=== PATIENT | female | born 1950 | race Caucasian/White ===

== ENCOUNTER 2016-05-09 09:45 | Day surgery (SDC) | payer MEDICARE ==
[2016-05-08 09:27] VITALS: BMI 39.4
--- NOTE | 2016-05-08 13:06 | HP ---
DATE OF ADMISSION: CHIEF COMPLAINT: Right knee pain. HISTORY OF PRESENT ILLNESS: The patient is a 66-year-old female who presents with progressive right knee pain for the past 6 months. She notes increasing symptoms recently. She is having giving way along with locking and catching. She notes it interferes with her normal function and activities. She tried medications along with an injection with only partial temporary relief. PAST MEDICAL HISTORY: Significant for reflux disease, hypertension, heart disease, previous TIA. PAST SURGICAL HISTORY: Significant for skin cancer excision, cholecystectomy, carotid endarterectomy and hysterectomy. CURRENT MEDICATIONS: 1. Metoprolol. 2. Plavix. 3. Simvastatin. 4. ( ). 5. Zyrtec. 6. Omeprazole. 7. Hydrochlorothiazide. She has allergies to FLOXIN, AUGMENTIN and CLINDAMYCIN. FAMILY HISTORY: Negative. SOCIAL HISTORY: Negative for current tobacco or alcohol use. Sixteen-point review of systems otherwise reviewed and is noncontributory. On examination, the patient is approximately 5 feet 4 inches, 247 pounds of endomorphic habitus. HEENT exam is nonfocal. Neck is supple. She has painless passive motion of her right hip. Straight leg raise is negative. Active motion of the right knee -6 to 105 degrees of flexion. She has a moderate effusion. She is tender about the medial joint line. Collaterals are stable, Stacey's negative, Rohith's elicits medial pain. Her distal neurovascular exam appears be intact in the right lower extremity. X-rays to include weight-bearing notch, lateral, and merchant views of the right knee obtained in the office show moderate tricompartmental osteoarthrosis. IMPRESSION: 1. Right knee moderate tricompartmental osteoarthrosis with probable medial meniscal tear. 2. Increased body mass index. RECOMMENDATIONS: I talked to the patient at length regarding her treatment options. At this point, she is having pain and mechanical symptoms that limit her. She opts to proceed with surgery. We will plan to proceed with arthroscopic evaluation with probable partial medial meniscectomy and possible medial femoral chondrectomy. Risks and benefits are discussed at length in layman terms. We will likely perform that as an outpatient procedure.
[~2016-05-09 09:45] MED LIST: DEXAMETHASONE SOD PHOSPHATE 10 MG/ML 1 ML VIAL IV ONE; LACTATED RINGERS 1,000 ML IV SCH; MIDAZOLAM 2 MG/2 ML VIAL IV PRN; ONDANSETRON 4 MG/2 ML VIAL IVP ONE; SCOPOLAMINE 1.5MG/72HR PATCH TRANSDERM ONE; ceFAZolin 2 GM in SODIUM CHLORIDE 0.9% 100 ML IVPB ONE
[2016-05-09] MEDS ORDERED: NEOSTIGMINE 1 MG/ML 10 ML VIAL ONE (12:10)
[2016-05-09] MEDS ORDERED: MIDAZOLAM 2 MG/2 ML VIAL ONE (12:10)
[2016-05-09] MEDS ORDERED: GLYCOPYRROLATE 0.2 MG/ML 2 ML VIAL ONE (12:10)
[2016-05-09] MEDS ORDERED: ROCURONIUM BROMIDE 10 MG/ML 10 ML VIAL IV ONE (12:10)
[2016-05-09] MEDS ORDERED: fentaNYL (PF) 50 MCG/ML 2 ML AMP ONE (12:10)
[2016-05-09] MEDS ORDERED: LIDOCAINE 1% INJ 10MG/ML (20 ML MDV) ONE (12:10)
[2016-05-09] MEDS ORDERED: SUCCINYLCHOLINE CHLORIDE 100 MG/5 ML SYR IV ONE (12:10)
[2016-05-09] MEDS ORDERED: PROPOFOL 10 MG/ML 20 ML VIAL IV ONE (12:10)
--- NOTE | 2016-05-09 12:57 | P.OP ---
Date of Procedure: 05/09/16 Preoperative Diagnosis: Right knee internal derangement Postoperative Diagnosis: Right knee posterior medial meniscal tear/grade 3 chondral injury posterior medial femoral condyle/anterior and posterior lateral meniscal tears Procedure(s) Performed: Right knee arthroscopic partial medial meniscectomy/medial femoral chondrectomy/ partial lateral meniscectomy Anesthesia: BRIDGER Surgeon: Oli Miranda Estimated Blood Loss (ml): 10 Pathology: none sent Condition: stable Disposition: PACU Indications for Procedure: The patient's a 66-year-old female presents with progressive right knee pain and mechanical symptoms despite conservative treatment. A discussion of the risks and benefits of operative intervention versus continued conservative measures was made with patient. She opted to proceed with surgery. Operative risks to include infection, neurovascular injury, development of blood clots, possible incomplete resolution of symptoms, possible worsening symptoms and need for subsequent procedures was discussed. Informed consent was obtained. Operative Findings: As below Description of Procedure: The patient was brought to the operating room, and after induction of general anesthesia examined the right knee. Collaterals were stable, Stacey was negative, and posterior drawer was negative. Right lower extremity was prepped and draped in normal fashion. A superior lateral portal was made through a 3 mm skin incision superior and lateral to the patella. This was used for outflow. A lateral portal was made through a 5 mm vertical skin incision lateral to the patellar tendon above the joint. Diagnostic arthroscopy was performed. A medial portal was made through a similar incision medial to the patellar tendon above the joint line. On inspection the medial compartment, she is noted have a longitudinal tear involving the posterior horn medial meniscus in the white-white junction. Debrided back to stable base with a straight baskets. A corresponding grade 3 chondral injury involving the central posterior portion of the medial femoral condyle was noted. It was a loose chondral fragment debrided back to stable base the motorized shaver. The remaining medial meniscus was stable and intact. On inspection of the notch, the anterior cruciate ligament appeared to be intact. There appeared to be an anterior horn lateral meniscal tear that was unstable. His debrided back to stable base with straight baskets and a motorized shaver. A posterior lateral meniscal tear was noted as well. This was debrided back to stable base with straight baskets and a motorized shaver. The remaining lateral meniscus was stable and intact. On inspection of the patellofemoral articulation, there were grade 2 degenerative changes however no loose chondral fragments. The gutters were clear debris. The knee was then thoroughly irrigated. The portals were closed with Steri-Strips. A sterile dressing was applied in addition to a compression stocking. The patient was awoken from general anesthesia and transferred to the recovery room in good condition. Blood loss was estimated at 10 mL. No complications were incurred.
[2016-05-09] MEDS: HYDROmorphone 1 MG/ML 1 ML SYRINGE IVP PRN ×4 (13:00→13:40)
[2016-05-09 13:14] VITALS: TEMP 98.1
[2016-05-09 14:48] VITALS: RESP 16
[2016-05-09 15:37] LABS: Glucose,Whole Blood 151 mg/dL (75-99)
[2016-05-09 18:32] VITALS: BP 157/75; PULSE 58
== END 2016-05-09 18:25 | disposition home or self-care (01) ==
LOC: OR 09:45
PROVIDERS: ATTEND Orthopaedic Surgery
DX: S83.241A Other tear of medial meniscus, current injury, right knee, initial encounter (principal); S83.281A Other tear of lateral meniscus, current injury, right knee, initial encounter; M17.11 Unilateral primary osteoarthritis, right knee; M94.8X6 Other specified disorders of cartilage, lower leg; I73.9 Peripheral vascular disease, unspecified; E78.5 Hyperlipidemia, unspecified; K21.9 Gastro-esophageal reflux disease without esophagitis; X58.XXXA Exposure to other specified factors, initial encounter; Z88.1 Allergy status to other antibiotic agents; Z88.0 Allergy status to penicillin; Z88.8 Allergy status to other drugs, medicaments and biological substances; Z79.02 Long term (current) use of antithrombotics/antiplatelets; Z79.899 Other long term (current) drug therapy; Z86.73 Personal history of transient ischemic attack (TIA), and cerebral infarction without residual deficits
CPT/HCPCS: 29880; 93005; J2250; J1100; J2710; J0690; J2405; J2001; J3010; J1170; J0330; J2704

== ENCOUNTER → 2016-09-09 | Outpatient (CLI) | payer MEDICARE ==
--- NOTE | 2016-09-09 20:51 | CONS ---
DATE OF CONSULTATION: REASON FOR EVALUATION: Sleep apnea. This is a 66-year-old female patient diagnosed and treated for sleep apnea for more than 12 years. The patient has an older CPAP unit, and she is in to update her CPAP machine and supplies. She is using Soriano FX nasal pillows. She has been on treatment for many years at a pressure of 7 cm of water. Her treatment has been successful. No recent weight gain. No snoring while on her CPAP machine. She wakes up alert and awake during the day. Her machine is old and the humidification chamber is not available for another placement, as this is a discontinued model. The patient has no specific complaints. She reports her sleep quality to be good. She goes to bed around midnight, wakes up at 7:00 in the morning, and she is averaging around 7 hours of sleep, and she is refreshed. Bartlett score is 6. No sleep paralysis. No hallucinations. No cataplexy. No restlessness in the lower extremities. No parasomnias. PAST MEDICAL HISTORY: 1. MARIAH. 2. Hypertension. 3. Hyperlipidemia. 4. Atrial fibrillation. 5. Obesity. 6. TIA. 7. Carotid artery disease. Past surgical history includes: 1. Cholecystectomy. 2. Hysterectomy. 3. Skin cancer resection. 4. Carotid endarterectomy. 5. Surgery on the knees. 6. Surgery on the ankle for fracture. ALLERGIES: AUGMENTIN. Outpatient medication includes: 1. Diovan. 2. Lipitor. 3. Omeprazole. 4. Metoprolol. 5. The patient is on a blood thinner; she could not recall the exact medication. FAMILY HISTORY: Negative for sleep apnea. SOCIAL HISTORY: The patient is not a smoker. No history of alcohol. No history of IV drugs. REVIEW OF SYSTEMS: Twelve-point review of systems was done. Positive findings were all mentioned above in the history of present illness. Of significance is the weight loss noted during her most recent study in 2013. The patient used to weigh 242 and currently she is down to 225. She is in the process of losing more weight. She has occasional grinding of the teeth. She also wakes up with some occasional dry mouth. No snoring while on CPAP therapy. No anxiety or panic attacks. No palpitations. No heartburn. No gasping for air at nighttime. No restlessness in the lower extremities. No sweating. No claustrophobia. No anxiety. No sexual dysfunction. BP is 153/81, pulse 81, respirations 16, temperature 98.3. Saturation is 96% on room air. BMI is 39.2. Weight is 225. Height is 5 feet 3 inches. Neck size 15-1/2 inches. GENERAL APPEARANCE: Calm, comfortable. HEENT: Short neck, crowding of posterior pharynx. No goiter or neck masses. LUNGS: Clear to auscultation. HEART: Heart sounds are regular rate and rhythm. Normal S1, S2. No S3. No S4. No murmurs. ABDOMEN: Soft, nontender. No organomegaly. EXTREMITIES: No edema. No cyanosis or clubbing. IMPRESSION: 1. Obstructive sleep apnea, treated with a CPAP pressure of 7 cm of water. The patient is in for CPAP supplies and she is also interested in updating her CPAP machine. 2. Obesity. She has lost around 18 pounds since her latest CPAP titration. Current BMI is 39. 3. Chronic atrial fibrillation. 4. Hyperlipidemia. 5. Hypertension. 6. History of transient ischemic attack. 7. Carotid artery disease with previous endarterectomy. PLAN: 1. Encourage further weight loss. 2. Will order a new CPAP machine at a pressure of 7 cm of water. I do not see the need to repeat a titration, knowing that the patient's treatment has been successful. 3. Update her CPAP mask and supplies. She will be ordered Soriano FX nasal pillows. 4. She will see me back in followup if a CPAP machine is obtained for a compliancy check and followup.
== END ==
LOC: SLEEP 15:41
PROVIDERS: ATTEND Internal Medicine Critical Care Medicine
DX: G47.33 Obstructive sleep apnea (adult) (pediatric) (principal); E66.9 Obesity, unspecified; I48.2 Chronic atrial fibrillation; E78.5 Hyperlipidemia, unspecified; I10 Essential (primary) hypertension; I25.10 Atherosclerotic heart disease of native coronary artery without angina pectoris; Z79.899 Other long term (current) drug therapy
CPT/HCPCS: 99211

== ENCOUNTER → 2016-11-18 | Outpatient (CLI) | payer MEDICARE ==
--- NOTE | 2016-11-18 21:34 | PN ---
Susu is 66, coming in for compliancy check regarding her obstructive sleep treatment. Note that during her last visit, I gave this patient a new CPAP unit which is her Rezmet air sense unit, set at a pressure of 7 cm water. She is coming for a compliancy check. She is using her CPAP every night without any interruptions. She is averaging around 8.4 hours of CPAP use every night. AHI is down to 4.5. Leak factors at 8 L per minute. Her sleep quality is the same. It is good and she is not having any symptoms of hypersomnia or sleepiness during the day. She does not snore during sleep. No nocturnal arousals. BP is 144/77. Pulse 64. Respirations 16. Weight is comparable at 224. Height is 5 feet 3 inches. BMI 39.6. Temperature 96.6. General appearance, calm, comfortable. HEENT: Short neck, crowding of posterior pharynx. There is no goiter. No neck masses. Lungs clear to auscultation. Heart sounds regular rate and rhythm. Normal S1, S2. No S3, no murmurs. Abdomen soft. Nontender. No organomegaly. Extremities no cyanosis, clubbing or edema. IMPRESSION: 1. Symptomatic obstructive sleep apnea, still receiving CPAP therapy at a pressure of 7 cm water. 2. Hyperlipidemia. 3. Obesity, BMI 396. 4. Hypersomnia, improved. PLAN: The patient is compliant. Treatment is successful. The patient is benefiting from treatment. Compliance data was reviewed. No adjustments from my standpoint for today. See me back in a years time in follow-up, earlier if needed. DUGLAS
== END ==
LOC: SLEEP 14:01
PROVIDERS: ATTEND Internal Medicine Critical Care Medicine
DX: G47.33 Obstructive sleep apnea (adult) (pediatric) (principal); G47.10 Hypersomnia, unspecified; E78.5 Hyperlipidemia, unspecified; E66.9 Obesity, unspecified; Z68.39 Body mass index [BMI] 39.0-39.9, adult

== ENCOUNTER → 2017-04-07 | Outpatient (CLI) | payer MEDICARE | END | disposition home or self-care (01) | LOC: MMGSC 12:18 | PROVIDERS: ATTEND Family Medicine | DX: E55.9 Vitamin D deficiency, unspecified (principal); R79.89 Other specified abnormal findings of blood chemistry | CPT/HCPCS: 36415; 82306; 82550 ==

== ENCOUNTER → 2017-05-06 | Outpatient (CLI) | payer MEDICARE ==
--- NOTE | 2017-05-08 06:54 | MM ---
Reason for exam: screening (asymptomatic). Last mammogram was performed 1 year and 1 month ago. History: Patient is postmenopausal and has history of other cancer at age 50. Excisional biopsy of the right breast. Took estrogen for 20 years beginning at age 34. Physical Findings: A clinical breast exam by your physician is recommended on an annual basis and results should be correlated with mammographic findings. MG 3D Screening Mammo W/Cad Bilateral CC and MLO view(s) were taken. Prior study comparison: March 24, 2016, bilateral MG 3d screening mammo w/cad. March 21, 2015, bilateral MG screening mammo w CAD. There are scattered fibroglandular densities. There is no discrete abnormality, including area of concern. ASSESSMENT: Negative, BI-RAD 1 RECOMMENDATION: Routine screening mammogram of both breasts in 1 year.
== END | disposition home or self-care (01) ==
LOC: RADMAMWWP 11:16
PROVIDERS: ATTEND Obstetrics & Gynecology
DX: Z12.31 Encounter for screening mammogram for malignant neoplasm of breast (principal)
CPT/HCPCS: 77063; 77067

== ENCOUNTER → 2017-05-12 | Outpatient (CLI) | payer MEDICARE ==
[2017-05-12 18:51] LABS: Cholesterol 304 mg/dL (<200); Creatine Kinase 89 U/L (30-135); HDL Cholesterol 55 mg/dL (40-60); LDL Cholesterol,Calculated 202 mg/dL (0-99); Triglycerides 237 mg/dL (<150)
== END | disposition home or self-care (01) ==
LOC: MMGSC 10:50
PROVIDERS: ATTEND Family Medicine
DX: E78.5 Hyperlipidemia, unspecified (principal); E55.9 Vitamin D deficiency, unspecified; R74.8 Abnormal levels of other serum enzymes
CPT/HCPCS: 36415; 80061; 82306; 82550

== ENCOUNTER → 2017-08-12 | Outpatient (CLI) | payer MEDICARE ==
[2017-08-12 18:57] LABS: Basophils % (A) 1 %; Eosinophils # (A) 0.1 k/uL (0-0.7); Eosinophils % (A) 2 %; HCT 40.7 % (34.0-46.0); HGB 13.6 gm/dL (11.4-16.0); Lymphocytes # (A) 3.1 k/uL (1.0-4.8); Lymphocytes % (A) 43 %; MCH 29.2 pg (25.0-35.0); MCHC 33.3 g/dL (31.0-37.0); MCV 87.8 fL (80.0-100.0); Mean Platelet Volume 7.4; Monocytes # (A) 0.4 k/uL (0-1.0); Monocytes % (A) 5 %; Neutrophils # (A) 3.4 k/uL (1.3-7.7); Neutrophils % (A) 47 %; Platelet Count 218 k/uL (150-450); RBC 4.64 m/uL (3.80-5.40); RDW 13.3 % (11.5-15.5); WBC 7.2 k/uL (3.8-10.6)
[2017-08-12 19:18] LABS: ALT 26 U/L (9-52); AST 30 U/L (14-36); Albumin 4.3 g/dL (3.5-5.0); Alkaline Phosphatase 85 U/L (38-126); Anion Gap 13 mmol/L; Blood Urea Nitrogen 13 mg/dL (7-17); Calcium 9.7 mg/dL (8.4-10.2); Carbon Dioxide 28 mmol/L (22-30); Chloride 103 mmol/L (98-107); Cholesterol 179 mg/dL (<200); Glucose 106 mg/dL (74-99); HDL Cholesterol 57 mg/dL (40-60); LDL Cholesterol,Calculated 84 mg/dL (0-99); Potassium 3.9 mmol/L (3.5-5.1); Sodium 144 mmol/L (137-145); Total Bilirubin 0.7 mg/dL (0.2-1.3); Total Protein 6.9 g/dL (6.3-8.2); Triglycerides 192 mg/dL (<150)
[2017-08-12 19:30] LABS: T4, Free (Free Thyroxine) 0.88 ng/dL (0.78-2.19)
== END | disposition home or self-care (01) ==
LOC: MMGSC 10:47
PROVIDERS: ATTEND Family Medicine
DX: E78.5 Hyperlipidemia, unspecified (principal); I10 Essential (primary) hypertension; E55.9 Vitamin D deficiency, unspecified
CPT/HCPCS: 36415; 80053; 80061; 82306; 84439; 84443; 85025

== ENCOUNTER → 2017-10-13 | Outpatient (CLI) | payer MEDICARE ==
--- NOTE | 2017-10-13 10:10 | XR ---
EXAMINATION TYPE: XR thoracic spine complete DATE OF EXAM: 10/13/2017 CLINICAL HISTORY: pain TECHNIQUE: Frontal, lateral, and swimmer's view of thoracic spine are obtained. COMPARISON: None. FINDINGS: Thoracic spine show satisfactory alignment without evidence of acute fracture or dislocatio n. Vertebral body heights are preserved. Moderate degenerative disc space narrowing and spondylosis. Visualized ribs are unremarkable. IMPRESSION: No acute fracture or dislocation is seen in the thoracic spine. ICD 10 NO FRACTURE, INIT IAL EVALUATION
--- NOTE | 2017-10-13 10:13 | XR ---
EXAMINATION TYPE: XR lumbosacral spine min 4V DATE OF EXAM: 10/13/2017 CLINICAL HISTORY: pain COMPARISON: NONE TECHNIQUE: Frontal, lateral, and oblique images of the lumbar spine are obtained. FINDINGS: There are 5 lumbar type vertebral bodies identified. Mild curvature seen convex to the lef t. The lumbar spine shows satisfactory alignment without evidence of acute fracture or dislocation. V ertebral body heights are within normal limits. Moderate degenerative disc space narrowing and spondy losis. Facet joint arthropathy. Grade 1 anterolisthesis L4 and L5 measuring 5 mm. The overlying sof t tissue appears unremarkable. IMPRESSION: No acute fracture or dislocation is seen in the lumbar spine.ICD 10 NO FRACTURE, INITIAL EVALUATION
== END | disposition home or self-care (01) ==
LOC: RADXRYALE 09:40
PROVIDERS: ATTEND Internal Medicine
DX: M54.6 Pain in thoracic spine (principal); M54.5 Low back pain
CPT/HCPCS: 72072; 72110

== ENCOUNTER → 2017-11-03 | Outpatient (CLI) | payer MEDICARE ==
--- NOTE | 2017-11-03 14:50 | PN ---
PROGRESS NOTE Susu is 67 and the patient is doing well. She is coming in for annual check up regarding obstructive sleep apnea. I diagnosed this patient with MARIAH and she is currently on CPAP pressure of 7 cm of water. Over the past 1 year. The patient has gained around 7 pounds. She is utilizing her CPAP every night. Her compliancy for CPAP use is more than 4 hours, 100%. She still benefits from the treatment. She is waking up refreshed and alert during the day. Average CPAP is around 9.1 hours per night. Leak factor 10 L/minute. Her AHI while on treatment is down to 6.9, based on a 30 day compliancy data. No other complaints otherwise for now, her hypersomnia improved Hurricane score remained low at 7. No myocardial infarction, no CVA. No signs of any congestive heart failure. No cardiac arrhythmias. REVIEW OF SYSTEMS: 12-point review of system was done. Positive findings are mentioned in history of present illness. No reported history of angina headaches altered mentation, palpitations, nausea, vomiting, diarrhea, abdominal pain, strokes or focal neurological deficits or altered mentation at this point in time. No other complaints. PHYSICAL EXAMINATION: BP is 123/77, pulse 57, respirations 16, temperature 97.5, saturation 95% on room air. Weight is 231, height is 63 inches. Hurricane score is 7. GENERAL APPEARANCE: Calm, comfortable. Head is atraumatic, normocephalic. NECK: Supple. Mallampati class IV. There is no goiter or neck mass. LUNGS: Clear to auscultation. HEART: Sounds regular rhythm. Normal S1, S2. No S3. No murmurs. ABDOMEN: Soft, nontender. No organomegaly. EXTREMITIES: No edema. No cyanosis or clubbing. SKIN: No wounds or ulcerations. NEUROLOGIC: Alert and oriented x3. There is no focal neurological deficit. IMPRESSION: 1. Symptomatic obstructive sleep apnea currently on CPAP pressure of 7 cm of water. 2. Obesity with interval weight gain. Current BMI is 41 with a weight of 231. 3. Hypersomnia improved, Hurricane score is down to 7. PLAN: 1. Increase CPAP pressure up to 8 cm of water. With recent weight gain the AHI is slightly above 5. We will try to bring it down to below 5 and will increase the pressure is up to 8. 2. Refit this patient with AirFit P10 small size nasal pillows. 3. Encourage weight loss. 4. Treatment remains successful. See me back in a year's time or earlier if needed. MMODL / IJN: [id number] /
== END | disposition home or self-care (01) ==
LOC: SLEEP 13:12
PROVIDERS: ATTEND Internal Medicine Critical Care Medicine
DX: G47.33 Obstructive sleep apnea (adult) (pediatric) (principal); E66.9 Obesity, unspecified; Z68.41 Body mass index [BMI] 40.0-44.9, adult; Z99.89 Dependence on other enabling machines and devices

== ENCOUNTER → 2018-02-19 | Outpatient (CLI) | payer MEDICARE ==
--- NOTE | 2018-02-19 16:54 | XR ---
EXAMINATION TYPE: XR facial bones limited DATE OF EXAM: 02/19/2018 COMPARISON: None HISTORY: Pain, fall TECHNIQUE: 3 view facial bones FINDINGS: Nasal bones appear intact. Orbits appear intact. Paranasal sinuses are clear. Maxillary spi ne is intact. IMPRESSION: 1. Normal facial bones
--- NOTE | 2018-02-19 16:56 | XR ---
EXAMINATION TYPE: XR elbow limited RT DATE OF EXAM: 02/19/2018 COMPARISON: None HISTORY: Fall, pain TECHNIQUE: 2 view right elbow FINDINGS: Anterior fat pad is normal. No elevation posterior fat is evident. Radius aligns normally w ith the humerus. Some vacuum phenomenon may be at the radial humeral junction. An old fracture of the humeral head may be present laterally. An acute fracture is not identified. IMPRESSION: 1. No acute osseous abnormality. 2. Mild degenerative changes.
--- NOTE | 2018-02-19 16:57 | XR ---
EXAMINATION TYPE: XR wrist complete RT DATE OF EXAM: 02/19/2018 COMPARISON: None HISTORY: Fall, pain TECHNIQUE: Three-view right wrist FINDINGS: Degenerative joint changes are present. No acute or subacute fractures evident. There is pr ominent soft tissue swelling over the dorsum of the wrist. IMPRESSION: 1. Soft tissue swelling dorsum of the wrist. 2. Degenerative joint changes. 3. No acute osseous abnormality. 4. If there is pain at the anatomic snuff box, nuclear medicine bone scan could be performed for add itional evaluation.
--- NOTE | 2018-02-19 16:59 | XR ---
EXAMINATION TYPE: XR hand complete RT DATE OF EXAM: 02/19/2018 COMPARISON: None HISTORY: Pain, fall TECHNIQUE: Three-view right hand FINDINGS: Degenerative joint changes are present. No acute fractures are evident. Soft tissues of the hand appear normal. IMPRESSION: 1. Degenerative joint changes. 2. No acute osseous abnormality.
== END | disposition home or self-care (01) ==
LOC: RADXRYALE 09:03
PROVIDERS: ATTEND Internal Medicine
DX: M19.021 Primary osteoarthritis, right elbow (principal); M19.031 Primary osteoarthritis, right wrist; M19.041 Primary osteoarthritis, right hand; R22.0 Localized swelling, mass and lump, head
CPT/HCPCS: 70140

== ENCOUNTER → 2018-09-09 | Outpatient (CLI) | payer MEDICARE, OTHER ==
--- NOTE | 2018-09-09 13:34 | XR ---
EXAMINATION TYPE: XR facial bones complete DATE OF EXAM: 09/09/2018 COMPARISON: NONE HISTORY: Pain over the right zygoma after fall 3-4 weeks ago. TECHNIQUE: 4 views of the facial bones were obtained FINDINGS: There is a subtle lucency of the right zygomatic arch that could represent overlapping stru ctures or nondisplaced acute fracture. CT facial bones is recommended for further evaluation in this is the patient's area of tenderness. Nasal septum is midline. Chronic appearing ostium renal thickening is seen of the right maxillary sin us. Left paranasal sinuses well aerated. Remainder the paraspinous sinuses are also well aerated. Bon y orbits appear symmetric and intact. No radiopaque foreign body is seen other than dental fillings. Calvarium appears grossly intact in its visualized portions. IMPRESSION: Subtle lucency over the right maxilla could represent a nondisplaced acute fracture. CT f acial bones is recommended given this is the patient's stated area of pain.
== END | disposition home or self-care (01) ==
LOC: RADXRYALE 11:42
PROVIDERS: ATTEND Internal Medicine
DX: G50.1 Atypical facial pain (principal)
CPT/HCPCS: 70150

== ENCOUNTER → 2018-09-14 | Outpatient (CLI) | payer MEDICARE, OTHER ==
--- NOTE | 2018-09-14 13:23 | CT ---
EXAMINATION TYPE: CT facial bones wo con DATE OF EXAM: 09/14/2018 COMPARISON: Facial bone x-ray September 09, 2018 HISTORY: 2 falls in past month. Patient fell face first. Right cheek and nose injury. CT DLP: 599.8 mGycm. Automated Exposure Control for Dose Reduction was Utilized. TECHNIQUE: CT scan of the facial bones are performed without contrast, axial images are obtained, cor onal reformatted images are also reviewed. FINDINGS: Nasal bones are intact. The orbital floors and torres are intact. The globes are intact bila terally. Intraconal fat is preserved. Zygomatic arches are intact bilaterally. Visualized portion of mandible is intact. There is flattening of the mandibular condyles bilaterally left more prominent th an right suggesting TMJ arthropathy. Pterygoid plates are intact bilaterally. Visualized maxilla is i ntact. Visualized paranasal sinuses are clear. The surgically treated ostiomeatal complex is patent bilatera lly. Visualized portion of brain parenchyma shows mild to moderate diffuse age-related cerebral atrophy. IMPRESSION: No acute or subacute displaced facial bone fracture. Area of concern on recent x-ray is felt to reflect prominent suture.
== END | disposition home or self-care (01) ==
LOC: RADCTMAIN 11:54
PROVIDERS: ATTEND Internal Medicine
DX: S09.93XA Unspecified injury of face, initial encounter (principal); Z88.0 Allergy status to penicillin; Z88.1 Allergy status to other antibiotic agents
CPT/HCPCS: 70486

== ENCOUNTER → 2018-11-16 | Outpatient (CLI) | payer MEDICARE ==
--- NOTE | 2018-11-16 12:28 | SFUN ---
SLEEP CENTER FOLLOW UP NOTE This is a 68-year-old female patient with known history of obstructive sleep apnea coming in for annual check. She is doing well. 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 She remains on a CPAP pressure of 8. Since last year. The patient since last seen, the patient has gained IX pounds. I checked the compliance and the patient is averaging about 8 hours of CPAP use per night CPAP use for more than 4 hours is 100% AHI is down to 4.5, while on treatment because it 16 L/minute. She is using Air Fit small size nose pillows. The patient is looking great no significant complaints otherwise for now. No angina. No palpitations. No congestion heart failure. No hypersomnia or sleepiness during the day. Her sleep quality remains not altered since last seen. REVIEW OF SYSTEMS: Fourteen-point review of system was done. Positive findings are mentioned in history of present illness. Medications are the same. Unchanged since last. Her Van Wert score is 14 BP is 138/76, pulse 59, respirations 16, temp 98.1 saturation 97% on room air. Height is 5 feet 10 inches, weight 240 BMI 42.5. Van Wert score of 14 general appearance calm comfortable head is atraumatic, normocephalic. NECK: Supple. No JVD. No goiter neck mass. Mallampati class 4 lungs diminished otherwise clear. HEART: Sounds regular rate and rhythm. Normal S1, S2. No S3. No murmurs. ABDOMEN: Soft, nontender. No organomegaly. EXTREMITIES: No edema. No cyanosis or clubbing. NEUROLOGIC: The patient is alert and oriented x3. No focal neurological deficits. PSYCHIATRIC Negative for anxiety or depression. IMPRESSION: 1. Obstructive sleep apnea. He continues to be on successful CPAP treatment with CPAP pressure of 8 cm of water. 2. Hypersomnia, recovered. 3. Obesity with a body mass index of 442.5. 4. Hyperlipidemia. PLAN: 1. Continue CPAP therapy at a pressure of 8 cm of water. 2. Renew the CPAP supplies including Air Fit P10 small size nose pillows and the heated tubing. 3. Encourage weight loss. 4. See me back in a year's time in followup, earlier if needed. MMODL / IJN: [id number] /
== END | disposition home or self-care (01) ==
LOC: SLEEP 11:21
PROVIDERS: ATTEND Internal Medicine Critical Care Medicine
DX: G47.33 Obstructive sleep apnea (adult) (pediatric) (principal); Z99.89 Dependence on other enabling machines and devices; E78.5 Hyperlipidemia, unspecified; E66.9 Obesity, unspecified; Z68.41 Body mass index [BMI] 40.0-44.9, adult

== ENCOUNTER → 2019-06-08 | Outpatient (CLI) | payer MEDICARE, OTHER ==
--- NOTE | 2019-06-08 09:34 | XR ---
EXAMINATION TYPE: XR shoulder complete RT DATE OF EXAM: 06/08/2019 COMPARISON: 02/08/2018 HISTORY: Pain TECHNIQUE: Shoulder examined in 3 projections FINDINGS: The humeral head articulates with the glenoid. There is loss of the joint space. Some erosion of the glenoid may be present. The acromio-clavicular junction is normal. No acute fractures or dislocations are evident. A follow up study can be performed 7-10 days from acute trauma for continued pain. IMPRESSION: 1. Advanced osteoarthritic degenerative change right shoulder
--- NOTE | 2019-06-08 09:36 | XR ---
EXAMINATION TYPE: XR cervical spine comp DATE OF EXAM: 06/08/2019 COMPARISON: None HISTORY: Chronic cervicalgia with limited range of motion TECHNIQUE: Three-view cervical spine FINDINGS: The prevertebral space is normal. Posterior spinal lamellar line is intact. Foramen as visu alized appear patent. There is loss of disc height C5-6. Minimal posterior endplate spurring may be p resent at this level. Remaining disc heights are preserved. Vertebral body heights are preserved rela cameron to the odontoid is limited with overlying occiput. IMPRESSION: 1. Degenerative disc changes C5-6 with mild posterior endplate spurring. 2. If additional evaluation would be of benefit, MRI could be performed.
== END ==
LOC: RADXRYALE 08:58
PROVIDERS: ATTEND Internal Medicine
DX: M47.812 Spondylosis without myelopathy or radiculopathy, cervical region (principal); M19.011 Primary osteoarthritis, right shoulder
CPT/HCPCS: 72050; 85652

== ENCOUNTER → 2019-10-11 | Outpatient (CLI) | payer MEDICARE, OTHER ==
--- NOTE | 2019-10-12 08:18 | MM ---
Reason for exam: screening (asymptomatic). Last mammogram was performed 1 year and 5 months ago. History: Patient is postmenopausal and has history of other cancer at age 50. Excisional biopsy of the right breast. Took estrogen for 20 years beginning at age 34. Physical Findings: A clinical breast exam by your physician is recommended on an annual basis and results should be correlated with mammographic findings. MG 3D Screening Mammo W/Cad Bilateral CC and MLO view(s) were taken. Prior study comparison: May 07, 2018, bilateral MG screening mammo w CAD. May 06, 2017, bilateral MG 3d screening mammo w/cad. There are scattered fibroglandular densities. Nodule lower inner right breast corresponds to BB. ASSESSMENT: Incomplete: need additional imaging evaluation, BI-RAD 0 RECOMMENDATION: Ultrasound of the right breast. Manage patient on a clinical basis. [facility] will attempt to contact patient to return for ultrasound.
== END | disposition home or self-care (01) ==
LOC: RADMAMWWP 08:12
PROVIDERS: ATTEND Obstetrics & Gynecology
DX: Z12.31 Encounter for screening mammogram for malignant neoplasm of breast (principal)
CPT/HCPCS: 77063; 77067

== ENCOUNTER → 2019-10-17 | Outpatient (CLI) | payer MEDICARE, OTHER ==
--- NOTE | 2019-10-18 07:55 | USB ---
Reason for exam: additional evaluation requested from abnormal screening. History: Patient is postmenopausal and has history of other cancer at age 50. Excisional biopsy of the right breast. Took estrogen for 20 years beginning at age 34. Physical Findings: Nurse Summary: patient states right breast lump increased x 6 months, 1cm sebaceous cyst 5 o'clock, left 1cm tender nodule 7 o'clock (nurse mj). US Breast Workup Limited IRWIN Right limited breast ultrasound including focal area of concern, retroareolar and axilla demonstrates a 1.5 x 1.0 x 1.6cm oval, hypoechoic lesion at 5 o'clock, partially involving skin surface, corresponds to a previously excised cutaneous lesion. Left limited breast ultrasound including focal area of concern, retroareolar and axilla demonstrates no cystic or solid lesion seen. Right scanned 3-6 o'clock. Left scanned 6-9 o'clock, no cystic or solid lesion at the nurse palpated site. These results were verbally communicated with the patient and result sheet given to the patient on 10/17/19. ASSESSMENT: Suspicious, BI-RAD 4 RECOMMENDATION: Surgical consultation of the right breast. Dermatology referral for repeat excision of recurrent and enlarging lesion. Called Dr. Borges's office with mammographic findings and has scheduled an appointment for the patient for 10/18/19 at 2:[address] Maguire. PRELIMINARY REPORT CALLED AND FAXED TO DR. MAGUIRE ON 10/18/19.
== END | disposition home or self-care (01) ==
LOC: RADUSWWP 14:14
PROVIDERS: ATTEND Obstetrics & Gynecology
DX: R92.8 Other abnormal and inconclusive findings on diagnostic imaging of breast (principal)

== ENCOUNTER → 2019-10-31 | Outpatient (CLI) | payer MEDICARE, OTHER ==
--- NOTE | 2019-10-31 16:59 | CT ---
EXAMINATION TYPE: CT brain w con DATE OF EXAM: 10/31/2019 COMPARISON: HISTORY: Unsteady gait. CT DLP: 1040.4 mGycm Automated exposure control for dose reduction was used. CONTRAST: CT scan of the head is performed with IV Contrast, patient injected with 100ml mL of Isovue 300. FINDINGS: There is no abnormal enhancing mass or midline shift identified. The ventricles and sulci are within normal limits in size. The globes are intact and the visualized sinuses are remarkable for postop c hange in the right maxillary sinus. There is cortical atrophy. White matter low-attenuation is nonspe cific. IMPRESSION: Nonspecific White matter demyelination, age related atrophy.
== END | disposition home or self-care (01) ==
LOC: RADCTMAIN 15:20
PROVIDERS: ATTEND Internal Medicine
DX: G37.9 Demyelinating disease of central nervous system, unspecified (principal); G31.1 Senile degeneration of brain, not elsewhere classified; Z88.1 Allergy status to other antibiotic agents; Z88.3 Allergy status to other anti-infective agents
CPT/HCPCS: 82565; 84520; 70460; 36415; Q9967

== ENCOUNTER → 2019-12-27 | Outpatient (CLI) | payer MEDICARE, OTHER ==
--- NOTE | 2019-12-27 16:01 | PN ---
PROGRESS NOTE A 69-year-old female patient with known history of obstructive sleep apnea coming in for an annual check. She is still living with her who suffers from dementia. She is the main caregiver. She is utilizing her CPAP. She is on a pressure of 8 cm of water. Based on the compliance data, I noted that the patient is having some obstructive respiratory events while on treatment. Her AHI while on treatment is up to 9.5. She has not gained any weight. Her weight is stable at around 241 pounds. She has been averaging 9.5 hours of CPAP use per night and her current pressure on the machine is 8 cm of water. Despite all this, she feels well. No major hypersomnia or sleepiness. [place] score is at 9. No angina. No chest pain, shortness of breath or heartburn over night. No other new onset comorbidities. No cardiac arrhythmias. Medication includes omeprazole, metoprolol, Plavix, Zyrtec, Lipitor, and amlodipine. BP is 128/69, pulse 64, respirations 16, temperature 98.0, saturation 96% on room air. Height is 5, 3, weight is 241, BMI is 42. GENERAL APPEARANCE: Calm, comfortable. HEAD: Atraumatic, normocephalic. NECK: Supple. No JVD. No goiter or neck mass, Mallampati class 4. LUNGS: Clear to auscultation. HEART: Sounds are regular rate and rhythm, normal S1, S2. No murmurs. ABDOMEN: Soft, nontender, no organomegaly. EXTREMITIES: No edema, no cyanosis or clubbing. NEUROLOGIC: Awake, alert, there are no focal neurological deficits. REVIEW OF SYSTEMS: A 14-point review of system was done. No chest pain. No shortness of breath. No heartburn. No altered mentation. No falls. No other history of any motor vehicle accident because of feeling drowsy or sleepy. No loss in consciousness. No seizure activity. No anxiety or depression. IMPRESSION: 1. Obstructive sleep apnea, currently on CPAP pressure of 8 cm of water. 2. Hypersomnia. [place] score is 9. 3. Obesity with stable body weight. 4. Hyperlipidemia. PLAN: I noted the residual obstructive respiratory events on the machine. Based on that, I will switch the patient to an APAP mode with a minimum pressure of 4, maximum pressure of 12 with a C-flex of 3. I will keep her on AirFit 10 small-sized nasal pillows. Keep the climate line heated tubing. Encourage weight loss. See me back in a year's time in followup. I am hoping with this adjustment, the patient will be able to achieve an AHI of less than 5. NETO / KARLEEN: [id number] /
== END | disposition home or self-care (01) ==
LOC: SLEEP 14:09
PROVIDERS: ATTEND Internal Medicine Critical Care Medicine
DX: G47.33 Obstructive sleep apnea (adult) (pediatric) (principal); E66.9 Obesity, unspecified; E78.5 Hyperlipidemia, unspecified; Z99.89 Dependence on other enabling machines and devices; Z68.41 Body mass index [BMI] 40.0-44.9, adult

== ENCOUNTER → 2020-10-25 | Outpatient (CLI) | payer MEDICARE, OTHER ==
--- NOTE | 2020-10-29 15:13 | MM ---
Reason for exam: screening (asymptomatic). Last mammogram was performed 1 year ago. History: Patient is postmenopausal and has history of other cancer at age 50. Excisional biopsy of the right breast. Took estrogen for 20 years beginning at age 34. Physical Findings: A clinical breast exam by your physician is recommended on an annual basis and results should be correlated with mammographic findings. MG 3D Screening Mammo W/Cad Bilateral CC and MLO view(s) were taken. Prior study comparison: October 11, 2019, bilateral MG 3d screening mammo w/cad. May 07, 2018, bilateral MG screening mammo w CAD. There are scattered fibroglandular densities. Benign vascular calcifications bilaterally. No significant changes when compared with prior studies. ASSESSMENT: Negative, BI-RAD 1 RECOMMENDATION: Routine screening mammogram of both breasts in 1 year.
== END | disposition home or self-care (01) ==
LOC: RADMAMWWP 10:32
PROVIDERS: ATTEND Obstetrics & Gynecology
DX: Z12.31 Encounter for screening mammogram for malignant neoplasm of breast (principal); Z78.0 Asymptomatic menopausal state; Z85.9 Personal history of malignant neoplasm, unspecified; Z79.818 Long term (current) use of other agents affecting estrogen receptors and estrogen levels
CPT/HCPCS: 77063; 77067

== ENCOUNTER → 2021-09-18 | Outpatient (CLI) | payer MEDICARE ==
[2021-09-18 14:46] LABS: HCT 40.5 % (37.2-46.3); HGB 12.7 g/dL (12.0-15.0); MCH 28.5 pg (27.0-32.0); MCHC 31.4 g/dL (32.0-37.0); MCV 90.8 fL (80.0-97.0); Mean Platelet Volume 9.8 fL (9.5-12.2); NRBC Per 100 WBC 0 /100 WBCS (0.0-0.0); Platelet Count 293 X 10*3/uL (140-440); RBC 4.46 X 10*6/uL (4.10-5.20); RDW 14.5 % (11.5-14.5); WBC 8.42 X 10*3/uL (4.50-10.00)
[2021-09-18 14:55] LABS: African American GFR (CKD) 104.7 (60.0-200.0); Anion Gap 12.9 mmol/L (10.00-18.00); Blood Urea Nitrogen 11.6 mg/dL (9.0-27.0); Carbon Dioxide 26.6 mmol/L (20.0-27.5); Non-African American GFR(CKD) 90.4 (60.0-200.0)
== END | disposition home or self-care (01) ==
LOC: LABPAT 10:07
PROVIDERS: ATTEND Internal Medicine
DX: Z01.812 Encounter for preprocedural laboratory examination (principal); I65.29 Occlusion and stenosis of unspecified carotid artery
CPT/HCPCS: 80051; 82565; 84520; 85027

== ENCOUNTER → 2021-10-31 | Outpatient (CLI) | payer MEDICARE ==
--- NOTE | 2021-10-31 10:53 | BD ---
EXAMINATION TYPE: Axial Bone Density DATE OF EXAM: 10/31/2021 COMPARISON: NONE CLINICAL HISTORY: 71 years year old Female. ICD-10 CODE: M85.88 OSTEOPENIA Height: 64 Weight: 246 FRAX RISK QUESTIONS: Alcohol (3 or more units per day): NO Family History (Parent hip fracture): NO Glucocorticoids (More than 3mos): NO History of Fracture in Adulthood: BILAT ANKLES, Secondary Osteoporosis: 1. Type 1 Diabetes: NO 2. Hyperthyroidism: NO 3. Menopause before 45: YES 4. Malnutrition: NO 5. Chronic liver disease: NO Rheumatoid Arthritis: NO Current Tobacco Use: NO RISK FACTORS HISTORY OF: Hip Fracture (Right/Left): NO Spine Fracture: NO History of Wrist Fracture: NO Surgery to Spine/Hip(right/left)/Wrist (right/left): NO Family History of Osteoporosis: NO Active: NO Diet low in dairy products/other sources of calcium: NO Postmenopausal woman: YES Take estrogen and/or progesterone medications: NO Lost more than 2 inches in height since high school: NO Frequent falls: YES Poor Health: NO Hyperparathyroidism: NO Adrenal Insufficiency: NO MEDICATIONS: Prednisone or other steroids: NO Thyroid Medications: NO Osteoporosis Medications: NO Additional Medications: ESCITALOPRAM, VALSARTAN, OMEPRAZOLE, METOPROLOL, VIT D, PLAVIX EXAM MEASUREMENTS: Bone mineral densitometry was performed using the [employer] System. Bone mineral density as measured about the Lumbar spine is: ----- L1-L4(G/cm2): 1.262 T Score Values are as follows: ----- L1: -0.1 ----- L2: -0.6 ----- L3: 1.3 ----- L4: 1.6 ----- L1-L4: 0.7 PRIORS ARE NOT AVAILABLE FOR COMPARISON. Bone mineral density about the R hip (g/cm2): 1.036 Bone mineral density about the L hip (g/cm2): 0.853 T Score values are as follows: -----R Neck: 0.0 -----L Neck: -1.3 -----R Total: 0.0 -----L Total: -0.7 PRIORS ARE NOT AVAILABLE FOR COMPARISON. FRAX%s: The graph provided illustrates a 13.9% chance for a major osteoporotic fx and a 1.9% chance f or the hips probability for fx in 10 years time. IMPRESSION: Normal (Values between +1 and -1 indicate normal bone mass). Consider repeating this study in 5 year s or sooner if there is some new clinical indication. NOTE: T-SCORE=SD OF THE YOUNG ADULT MEAN.
--- NOTE | 2021-11-01 08:19 | MM ---
Reason for Exam: Screening (asymptomatic). Last screening mammogram was performed 12 month(s) ago. Patient History: Menarche at age 11. First Full-Term at age 15. Left ovary removed at age 38. Right ovary removed at age 38. Hysterectomy at age 34. Postmenopausal. Estrogen for 20 years from age 34 until age 54. Excisional Biopsy on the Right side. Risk Values: Amalia 5 year model risk: 1.5%. NCI Lifetime model risk: 3.9%. Prior Study Comparison: 05/07/2018 Bilateral Screening Mammogram, [facility]. 10/11/2019 Bilateral Screening Mammogram, [facility]. 10/25/2020 Bilateral Screening Mammogram, [facility]. Tissue Density: There are scattered fibroglandular densities. Findings: Analyzed By CAD. Benign-appearing vascular and round calcifications bilaterally are redemonstrated. There is no suspicious group of microcalcifications or new suspicious mass in either breast. Overall Assessment: Benign, BI-RAD 2 Management: Screening Mammogram of both breasts in 1 year. A clinical breast exam by your physician is recommended on an annual basis and results should be correlated with mammographic findings. Electronically signed and approved by: Arron Salgado M.D.
== END | disposition home or self-care (01) ==
LOC: RADMAMWWP 08:26
PROVIDERS: ATTEND Obstetrics & Gynecology
DX: Z12.31 Encounter for screening mammogram for malignant neoplasm of breast (principal); M85.852 Other specified disorders of bone density and structure, left thigh; Z78.0 Asymptomatic menopausal state
CPT/HCPCS: 77063; 77067; 77080

== ENCOUNTER → 2022-08-07 | Outpatient (CLI) | payer MEDICARE ==
[~2022-08-07] MED LIST changes: -DEXAMETHASONE SOD PHOSPHATE 10 MG/ML 1 ML VIAL IV ONE; +IODINE/POTASSIUM IODIDE 14 ML BOTTLE ONE; -LACTATED RINGERS 1,000 ML IV SCH; -MIDAZOLAM 2 MG/2 ML VIAL IV PRN; -ONDANSETRON 4 MG/2 ML VIAL IVP ONE; -SCOPOLAMINE 1.5MG/72HR PATCH TRANSDERM ONE; -ceFAZolin 2 GM in SODIUM CHLORIDE 0.9% 100 ML IVPB ONE
--- NOTE | 2022-08-11 06:55 | NM ---
EXAMINATION TYPE: NM DatScan Brain SPECT DATE OF EXAM: 08/07/2022 COMPARISON: NONE HISTORY: Tremor. TECHNIQUE: 10 drops of Lugol's solution was administered 1 hour prior to injection as a thyroid bloc emily agent. After the administration of 4.75 mCi I-123 Ioflupane DaTscan. Images obtained 3 hours p ost injection. SPECT images of the brain were acquired with axial and coronal reconstructions. FINDINGS: The DaTSCAN demonstrates normal uptake of tracer throughout the striata. Consequently there is no evidence of loss of the pre-synaptic dopaminergic terminals on this investig ation. IMPRESSION: This normal appearance is against a diagnosis of idiopathic Parkinson?s disease (PD) or a Parkinsonia n syndrome (PS) and is seen in healthy individuals and also patients with essential tremor (ET), drug induced parkinsonism, and vascular pseudo-parkinsonism.
== END | disposition home or self-care (01) ==
LOC: RADNMMAIN 11:02
PROVIDERS: ATTEND Psychiatry & Neurology Neurology
DX: G21.19 Other drug induced secondary parkinsonism (principal); G25.0 Essential tremor
CPT/HCPCS: 78803; A9584

== ENCOUNTER → 2023-03-18 | Outpatient (CLI) | payer MEDICARE ==
--- NOTE | 2023-03-19 11:05 | MM ---
Reason for Exam: Screening (asymptomatic). Last mammogram was performed 1 year(s) and 4 month(s) ago. Patient History: Menarche at age 11. First Full-Term at age 15. Left ovary removed at age 38. Right ovary removed at age 38. Hysterectomy at age 34. Postmenopausal. Estrogen for 20 years from age 34 until age 54. Excisional Biopsy on the Right side. Risk Values: Amalia 5 year model risk: 1.5%. NCI Lifetime model risk: 3.5%. Prior Study Comparison: 10/11/2019 Bilateral Screening Mammogram, [facility]. 10/25/2020 Bilateral Screening Mammogram, [facility]. 10/31/2021 Bilateral MG 3D screening mammo w/cad, [facility]. Tissue Density: There are scattered fibroglandular densities. Findings: Analyzed By CAD. There is no suspicious group of microcalcifications or new suspicious mass in either breast. Overall Assessment: Benign, BI-RAD 2 Management: Screening Mammogram of both breasts in 1 year. . Patient should continue monthly self-breast exams. A clinical breast exam by your physician is recommended on an annual basis. This exam should not preclude additional follow-up of suspicious palpable abnormalities. Note on Amalia scores and lifetime risk: 1. A Amalia score greater than 3% is considered moderate risk. If this is the case, consider specialist referral to assess eligibility for a risk reducing agent. 2. If overall lifetime risk for the development of breast cancer is 20% or higher, the patient may qualify for future screening with alternating mammogram and breast MRI. Electronically signed and approved by: Vernon Keita M.D. Radiologis
== END | disposition home or self-care (01) ==
LOC: RADMAMWWP 10:06
PROVIDERS: ATTEND Internal Medicine
DX: Z12.31 Encounter for screening mammogram for malignant neoplasm of breast (principal); Z78.0 Asymptomatic menopausal state
CPT/HCPCS: 77063; 77067

== ENCOUNTER → 2023-04-01 | Outpatient (CLI) | payer MEDICARE ==
--- NOTE | 2023-04-01 15:11 | XR ---
EXAMINATION TYPE: XR thoracic spine complete DATE OF EXAM: 04/01/2023 COMPARISON: None HISTORY: Back pain TECHNIQUE: 3 view thoracic spine FINDINGS: There are 12 thoracic type vertebral bodies. Pedicles are intact. Mild scoliosis is present . Mild spondylosis present. Vertebral body heights are preserved. Disc heights are preserved. IMPRESSION: 1. Mild scoliosis and spondylosis thoracic spine
--- NOTE | 2023-04-02 07:51 | XR ---
EXAMINATION TYPE: XR lumbosacral spine min 4V DATE OF EXAM: 04/01/2023 COMPARISON: 10/13/2017 HISTORY: Back pain TECHNIQUE: 5 view lumbar spine FINDINGS: There are 5 lumbar-type vertebral bodies. Pedicles are intact. Side bending towards the lef t is evident. Facets are normal. There is posterior disc space narrowing present at L3-4. Mild diffus e disc space narrowing is present L4-5 and L5-S1. Vertebral body heights are preserved. No spondyloly tic defects are evident. IMPRESSION: 1. Mild degenerative disc changes
--- NOTE | 2023-04-02 07:53 | US ---
EXAMINATION TYPE: US kidneys/renal and bladder DATE OF EXAM: 04/01/2023 COMPARISON: CT CLINICAL INDICATION: Female, 73 years old with history of R10.9 UNSPECIFIED ABDOMINAL PAIN N20.0 KIDN EY STON; Pt states left flank pain EXAM MEASUREMENTS: Right Kidney: 11.1 x 5.0 x 5.7 cm Left Kidney: 11.0 x 5.5 x 4.9 cm Right Kidney: Appeared wnl Left Kidney: Appeared wnl Bladder: wnl Bilateral Jets seen: No IMPRESSION: 1. Normal renal ultrasound
== END | disposition home or self-care (01) ==
LOC: RADUSWWP 08:56
PROVIDERS: ATTEND Internal Medicine
DX: N20.0 Calculus of kidney (principal); M47.814 Spondylosis without myelopathy or radiculopathy, thoracic region; M41.84 Other forms of scoliosis, thoracic region; M51.36 Other intervertebral disc degeneration, lumbar region
CPT/HCPCS: 72072; 72110; 76770

== ENCOUNTER → 2023-04-24 | Outpatient (CLI) | payer MEDICARE | END | disposition home or self-care (01) | LOC: LABWHC1 12:28 | PROVIDERS: ATTEND Psychiatry & Neurology Neurology | DX: G62.9 Polyneuropathy, unspecified (principal); R25.1 Tremor, unspecified; R51.9 Headache, unspecified; R26.81 Unsteadiness on feet; Z79.899 Other long term (current) drug therapy | CPT/HCPCS: 36415; 82306; 82607; 83036 ==

== ENCOUNTER → 2023-05-05 | Outpatient (CLI) | payer MEDICARE ==
[2023-05-05 14:51] LABS: Basophils # (A) 0.03 X 10*3/uL (0.00-0.10); Basophils % (A) 0.3 %; Eosinophils # (A) 0.07 X 10*3/uL (0.04-0.35); Eosinophils % (A) 0.8 %; HCT 43.4 % (37.2-46.3); HGB 14.2 g/dL (12.0-15.0); Lymphocytes # (A) 3.45 X 10*3/uL (0.90-5.00); Lymphocytes % (A) 37.3 %; MCH 27.8 pg (27.0-32.0); MCHC 32.7 g/dL (32.0-37.0); MCV 85.1 FL (80.0-97.0); Mean Platelet Volume 10.2 FL (9.5-12.2); Monocytes # (A) 0.69 X 10*3/uL (0.20-1.00); Monocytes % (A) 7.5 %; NRBC Per 100 WBC 0 X 10*3/uL (0.00-0.01); Neutrophils # (A) 4.97 X 10*3/uL (1.80-7.70); Neutrophils % (A) 53.8 %; Platelet Count 261 X 10*3/uL (140-440); RDW 14.8 % (11.5-14.5); WBC 9.24 X 10*3/uL (4.50-10.00)
[2023-05-05 19:09] LABS: BUN/Creat Ratio 31.33 Ratio (12.00-20.00); Blood Urea Nitrogen 18.8 mg/dL (9.0-27.0); Calcium 9.6 mg/dL (8.7-10.3); Carbon Dioxide 25.4 mmol/L (21.6-31.8); Chloride 101 mmol/L (96-109); Glucose 118 mg/dL (70-110); Potassium 4.3 mmol/L (3.5-5.5); Sodium 140 mmol/L (135-145)
== END | disposition home or self-care (01) ==
LOC: LABWHC1 12:20
PROVIDERS: ATTEND Internal Medicine
DX: I10 Essential (primary) hypertension (principal); D64.9 Anemia, unspecified; E55.9 Vitamin D deficiency, unspecified; E11.65 Type 2 diabetes mellitus with hyperglycemia
CPT/HCPCS: 36415; 80048; 82306; 83036; 85025

== ENCOUNTER → 2023-07-31 | Outpatient (CLI) | payer MEDICARE ==
[2023-07-31 15:44] LABS: Basophils # (A) 0.04 X 10*3/uL (0.00-0.10); Basophils % (A) 0.5 %; Eosinophils % (A) 1.3 %; HCT 39.7 % (37.2-46.3); HGB 12.9 g/dL (12.0-15.0); Lymphocytes # (A) 2.86 X 10*3/uL (0.90-5.00); Lymphocytes % (A) 35.8 %; MCH 28.7 pg (27.0-32.0); MCHC 32.5 g/dL (32.0-37.0); MCV 88.4 FL (80.0-97.0); Mean Platelet Volume 10.2 FL (9.5-12.2); Monocytes # (A) 0.64 X 10*3/uL (0.20-1.00); NRBC Per 100 WBC 0 X 10*3/uL (0.00-0.01); Neutrophils # (A) 4.33 X 10*3/uL (1.80-7.70); Neutrophils % (A) 54.1 %; Platelet Count 231 X 10*3/uL (140-440); RBC 4.49 X 10*6/uL (4.10-5.20); RDW 14.1 % (11.5-14.5); WBC 7.99 X 10*3/uL (4.50-10.00)
[2023-07-31 16:01] LABS: Erythrocyte Sedimentation Rate 28 mm/Hr (0-30)
[2023-07-31 16:56] LABS: ALT 17 U/L (8-44); AST 14 U/L (13-35); Albumin 4.1 g/dL (3.8-4.9); Albumin/Globulin Ratio 1.64 Ratio (1.60-3.17); Alkaline Phosphatase 63 U/L (41-126); Blood Urea Nitrogen 15.9 mg/dL (9.0-27.0); Calcium 9.3 mg/dL (8.7-10.3); Carbon Dioxide 24.6 mmol/L (21.6-31.8); Chloride 106 mmol/L (96-109); Chol/HDL Ratio 3.04 Ratio; Creatine Kinase 62 U/L (26-186); Globulin 2.5 g/dL (1.6-3.3); Glucose 111 mg/dL (70-110); LDL Cholesterol,Calculated 88.6 mg/dL (0.0-131.0); Magnesium 2.4 mg/dL (1.5-2.4); Phosphorus 3.9 mg/dL (2.4-5.1); Potassium 4.5 mmol/L (3.5-5.5); Sodium 143 mmol/L (135-145); Total Bilirubin 0.3 mg/dL (0.3-1.2); Total Protein 6.6 g/dL (6.2-8.2)
== END | disposition home or self-care (01) ==
LOC: LABWHC1 10:09
PROVIDERS: ATTEND Internal Medicine
DX: Z00.00 Encounter for general adult medical examination without abnormal findings (principal); I10 Essential (primary) hypertension; E66.9 Obesity, unspecified; E78.5 Hyperlipidemia, unspecified; E05.90 Thyrotoxicosis, unspecified without thyrotoxic crisis or storm
CPT/HCPCS: 36415; 80053; 80061; 82272; 82306; 82550; 83735; 84100; 84443; 85025; 85652; 86140

== ENCOUNTER → 2023-09-10 | Outpatient (CLI) | payer MEDICARE ==
--- NOTE | 2023-09-10 17:33 | XR ---
EXAMINATION TYPE: XR ankle complete LT DATE OF EXAM: 09/10/2023 COMPARISON: None HISTORY: Prior fracture TECHNIQUE: 3 view left ankle FINDINGS: Prior fracture repair with plate and screws within the distal fibula is evident. The ankle mortise is intact. No acute fracture or dislocation evident. Soft tissues over the medial malleolus a re prominent Note is made of tarsal metatarsal degenerative joint changes. Large plantar calcaneal heel spur is pr esent. IMPRESSION: 1. No acute osseous abnormality right ankle. 2. Some degenerative changes noted within the mid foot.
--- NOTE | 2023-09-10 17:42 | XR ---
EXAMINATION TYPE: XR foot complete LT DATE OF EXAM: 09/10/2023 COMPARISON: None HISTORY: Pain TECHNIQUE: 3 view left foot FINDINGS: Prior fracture repair of the distal fibula is partially visualized on this portion of the e xam. There is prominent soft tissue over the medial malleolar region. There is degenerative change at the midfoot joint spaces between the navicular and cuneiforms may be some subchondral cysts within the middle cuneiform and within the mid navicular bone. Consider early Charcot joint. Cuneiform metatarsal alignment appears preserved. Structures are somewhat osteopenic. Distal and proximal interphalangeal joint spaces are narrow. Metatarsal-phalangeal joint spaces are p reserved. Large plantar calcaneal heel spur is present. IMPRESSION: 1. Soft tissue swelling medial malleolus. 2. Osteopenia. 3. Degenerative joint changes at the midfoot and in the distal digits. #4 this is a patient at risk f or Charcot joint
== END | disposition home or self-care (01) ==
LOC: LABWHC1 09:03
PROVIDERS: ATTEND Internal Medicine
DX: E11.9 Type 2 diabetes mellitus without complications (principal); M85.80 Other specified disorders of bone density and structure, unspecified site
CPT/HCPCS: 36415; 82947; 83036

== ENCOUNTER → 2024-01-01 | Outpatient (CLI) | payer MEDICARE ==
[2024-01-01 15:47] LABS: Calcium 9.8 mg/dL (8.7-10.3)
[2024-01-01 16:38] LABS: Magnesium 2.1 mg/dL (1.5-2.4)
== END ==
LOC: LABWHC1 11:44
PROVIDERS: ATTEND Psychiatry & Neurology Neurology
DX: G62.9 Polyneuropathy, unspecified (principal); R25.1 Tremor, unspecified; R51.9 Headache, unspecified; Z79.899 Other long term (current) drug therapy
CPT/HCPCS: 36415; 82306; 82310; 82607; 83036; 83735

== ENCOUNTER 2024-01-04 19:54 | Outpatient (CLI) | payer MEDICARE ==
--- NOTE | 2024-01-07 13:18 | P.PCN ---
Date of Procedure: 01/04/24 Operative Findings: Polysomnography report Date of service is 01/04/2024 Pertinent history This is a 74-year-old female patient with known history of obstructive sleep apnea. Original diagnosis was established before 2016. At that time, the patient was treated with a CPAP pressure of 8 cm of water. I was unable to retrieve the original polysomnography on this patient. Noted at the time of my evaluation, the patient was not using any therapy as her machine was broken and she was quite symptomatic from her disease. She has gained significant amount of weight over the years. Based on that, a updated polysomnography was ordered on this patient. Her comorbid conditions include hypertension, hyperlipidemia, and history of depression. Pertinent physical findings The patient's weight is 211 pounds with a body mass index of 37.4 Technical description The patient was studied using a standard complex polysomnography protocol that included recording of the Lead II EKG, Central, occipital and frontal EEG, right and left outer canthus EOG, submental EMG, right and left anterior tibialis EMG, respiratory airflow by thermocouple and or pressure/flow transducer, respiratory efforts by abdominal and thoracic PVDF belts, oxygen saturation by cable oximetry. Position by observation synchronized the PSG. Equipment used: [employer]. Sleep architecture The total recording duration was 383.0 minutes. The total sleep time was 332.5 minutes. The wake after sleep onset time was 17.5 minutes. Overall sleep efficiency was 86.8%. The patient is latency to sleep was 33 minutes and the latency to REM sleep was 131.5 minutes. The sleep architecture was characterized by 3.5% stage I, 80.5% stage II, 0% stage III, and a total of 16.2% REM sleep. The total arousal index was 39.7 Respiratory summary The patient's sleep study showed a total of 174 obstructive events of which 7 were obstructive apneas, 1 was mixed apneas and the patient had a total of 166 obstructive hypopneas and the resulting AHI was 30.7. It was noted that the patient's AHI was essentially unchanged and a REM sleep and the patient was essentially sleeping in his otherwise body position throughout the sleep study. The central apnea index was 1.1 as the patient had a total of 6 central apneas. Oxygenation analysis The patient had a baseline oxygen saturation of 94% while awake. The lowest pulse ox was 86% throughout the sleep study and the patient spent approximately 1 hour and 50 minutes of sleep time below pulse ox of 89% Sleep continuity summary The patient a total of 220 arousals with an index of 39.7. Respiratory arousal index was 8.3 Periodic limb movement summary The patient had a total of 212. Regular mood activity with an index of 38.3. There was only 1 periodic limb movement activity with arousal with an index of 0.2 Cardiac summary The average heart rate was 61. No significant tachycardia. No significant arrhythmias noted. Assessment Severe obstructive sleep apnea with AHI of 30.7 Nocturnal oxygen desaturation with a minimum pulse ox of 86% and the patient spent approximately 1 hour and 50 minutes of sleep time below pulse ox of 89% Periodic limb movement activity, not causing arousals Obesity with a BMI of 37.4 Hyperlipidemia Hypertension History of depression Acid reflux Coronary artery disease with previous coronary stenting Plan Proceed with CPAP titration and subsequently will treat this patient with a CPAP for severe symptomatic MARIAH. Encourage weight loss Optimize sleep hygiene measures Tight control of cardiovascular risk factors Maintain regular sleep schedule Will continue to follow
== END 2024-01-05 05:20 | disposition home or self-care (01) ==
LOC: 3 N SLEEP 19:54
PROVIDERS: ATTEND Internal Medicine Critical Care Medicine
CPT/HCPCS: 95810

== ENCOUNTER 2024-01-12 19:42 | Outpatient (CLI) | payer MEDICARE ==
--- NOTE | 2024-02-01 21:43 | P.PCN ---
Date of Procedure: 01/12/24 Operative Findings: CPAP titration report Date of service is 01/12/2024 Pertinent history This is a 74-year-old female patient with known history of obstructive sleep apnea. Original diagnosis was established before 2016. At that time, the patient was treated with a CPAP pressure of 8 cm of water. The patient underwent a polysomnography on 01/04/2024 and the patient was found to have severe MARIAH with an AHI of 30.7. Based on that the patient is coming in to undergo a CPAP titration study. Her comorbid conditions include hypertension, hyperlipidemia, and history of depression. Pertinent physical findings The patient's weight is 211 pounds with a body mass index of 37.4 Technical description The patient was studied using a standard complex polysomnography protocol that included recording of the Lead II EKG, Central, occipital and frontal EEG, right and left outer canthus EOG, submental EMG, right and left anterior tibialis EMG, respiratory airflow by thermocouple and or pressure/flow transducer, respiratory efforts by abdominal and thoracic PVDF belts, oxygen saturation by cable oxime try. Position by observation synchronized the PSG. Equipment used: Phizzbo. Stepwise CPAP titration was done to eliminate all obstructive respiratory events. Sleep architecture The total recording duration was 416.5 0 minutes. The total sleep time was 377.5 minutes. The wake after sleep onset time was 24 minutes. Overall sleep efficiency was 90.6 %. The patient is latency to sleep was 15 minutes and the latency to REM sleep was 290 minutes. The sleep architecture was characterized by 2.5 % stage I, 92.5 % stage II, 0% stage III, and a total of 5 % REM sleep. The total arousal index was 3.2 Respiratory summary The patient underwent CPAP titration and the initial pressure was started 5 cm of water and the pressure was gradually increased microplates of 1 cm to each and maximum CPAP pressure of 10 cm of water. At the level of CPAP pressure, the patient continued to have obstructive respiratory events with emergence of some few central events. Subsequently, the patient was also trialed on a BiPAP which essentially failed as the patient emergent central apneas and the patient continued to have obstructive and central apneas with oxygen saturations. In general, this was a suboptimal titration. Nevertheless, based on monitoring the various respiratory events at various CPAP and BiPAP pressures, I found that CPAP therapy was more effective than BiPAP and reducing the patient's apnea hypopnea index. Obviously, the patient was also having emergent central apneic events at higher CPAP and BiPAP pressures. Oxygenation analysis The patient continues to have episodes of nocturnal oxygen desaturations at the various CPAP and BiPAP pressures. The desaturations were somewhat worse while on BiPAP therapy. Sleep continuity summary The patient a total of 22 arousals with an index of 3.2. Respiratory arousal index was 0.2 Periodic limb movement summary The patient had a total of 580. Regular mood activity with an index of 92. There was only 1 periodic limb movement activity with arousal with an index of 0.2 Cardiac summary The average heart rate was 56. No significant tachycardia. No significant arrhythmias noted. Assessment Severe obstructive sleep apnea with AHI of 30.7, suboptimal titration with residual obstructive respiratory events at the various CPAP pressures and emergence of central apneas while being on BiPAP therapy. Nocturnal oxygen desaturation, improved while on CPAP/BiPAP, yet not completely eliminated Periodic limb movement activity, not causing arousals Obesity with a BMI of 37.4 Hyperlipidemia Hypertension History of depression Acid reflux Coronary artery disease with previous coronary stenting Plan Based on a careful review of the titration, the patient responded better on CPAP compared to BiPAP. There was obvious emergence of central events at higher BiPAP pressures. I am going to start the patient on an APAP treatment and I am going to offer this patient APAP pressures minimum of 4 and a maximum time with a C-Flex of 3 and this will be a starting pressure with further adjustments to be done based on the overall compliancy, clinical response and the resulting AHI while on treatment. The patient will need to come back for short-term follow-up to monitor the AHI while on treatment and decide on further options. The patient will be offered an AirFit F20 fullface mask, medium size.
== END 2024-01-13 05:45 | disposition home or self-care (01) ==
LOC: 3 N SLEEP 19:42
PROVIDERS: ATTEND Internal Medicine Critical Care Medicine
CPT/HCPCS: 95811

== ENCOUNTER → 2024-01-14 | Outpatient (CLI) | payer MEDICARE ==
--- NOTE | 2024-01-14 16:36 | XR ---
EXAMINATION TYPE: XR thoracic spine 2V DATE OF EXAM: 01/14/2024 COMPARISON: None HISTORY: Back pain after fall TECHNIQUE: 3 views thoracic spine FINDINGS: There is a scoliosis centered at T8 and convexity to the right. There are 12 thoracic type vertebral bodies. Pedicles are intact. Vertebral body heights are preserved. Disc heights are preserv ed. Some spondylosis is present. IMPRESSION: 1. Mild scoliosis [facility], , 01/14/2024 4:34 PM
[2024-01-14 17:17] LABS: Creatinine,Urine Random 50.9 mg/dL; Protein/Creatinine Ratio,Urine 0.098
--- NOTE | 2024-01-14 19:03 | XR ---
EXAMINATION TYPE: XR cervical spine limited DATE OF EXAM: 01/14/2024 COMPARISON: None HISTORY: Pain after fall TECHNIQUE: 2 view cervical spine FINDINGS: Cervical spine is examined in the AP and open-mouth odontoid views. A stent is present thro ugh the right carotid bifurcation region with calcification. Some milder calcifications at the left c arotid bifurcation level. No obvious fractures evident. IMPRESSION: 1. Unremarkable limited cervical spine [facility], , 01/14/2024 7:01 PM
--- NOTE | 2024-01-14 19:05 | XR ---
EXAMINATION TYPE: XR shoulder complete RT DATE OF EXAM: 01/14/2024 COMPARISON: NONE HISTORY: Pain TECHNIQUE: Shoulder examined in 3 projections. FINDINGS: The humeral head articulates with the glenoid. There is advanced erosive changes of the glenohumeral junction. Humeral head spurring is noted. The acromio-clavicular junction is normal. No acute fractures or dislocations are evident. A follow up study can be performed 7-10 days from acute trauma for continued pain. MRI can be perfor med if soft tissue evaluation would be of benefit. IMPRESSION: 1. No acute osseous shoulder abnormality. 2. 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
--- NOTE | 2024-01-14 19:06 | XR ---
EXAMINATION TYPE: XR sacroiliac joint comp BILAT DATE OF EXAM: 01/14/2024 COMPARISON: None HISTORY: Pain after fall TECHNIQUE: 3 view sacroiliac joints FINDINGS: A vacuum joint space phenomenon is present. Joint spaces are patent. No acute fractures are evident. IMPRESSION: 1. Vacuum joint space. The bilateral sacroiliac joints. 2. No acute osseous abnormality. [facility], , 01/14/2024 7:03 PM
--- NOTE | 2024-01-14 19:08 | XR ---
EXAMINATION TYPE: XR Hip Complete LT DATE OF EXAM: 01/14/2024 COMPARISON: None HISTORY: Fall, pain TECHNIQUE: 2 view left hip FINDINGS: No acute fracture or dislocation evident. Joint space is preserved. IMPRESSION: 1. No acute osseous abnormality left hip [facility], , 01/14/2024 7:05 PM
[2024-01-15 03:39] LABS: Blood Urea Nitrogen 13.3 mg/dL (9.0-27.0); Calcium 9.4 mg/dL (8.7-10.3); Carbon Dioxide 27.4 mmol/L (21.6-31.8); Chloride 102 mmol/L (96-109); Glucose 89 mg/dL (70-110); Magnesium 2.2 mg/dL (1.5-2.4); Potassium 4.5 mmol/L (3.5-5.5); Sodium 141 mmol/L (135-145)
[2024-01-15 03:51] LABS: Microalbumin Creatinine Ratio <25 mg/g Cr (0-30); Urine Creatinine 48.2 mg/dL (28.0-217.0)
[2024-01-15 03:55] LABS: Appearance,Urine Clear (Clear); Bilirubin,Urine Negative (Negative); Blood,Urine Negative (Negative); Color,Urine Yellow (Yellow); Ketones,Urine Negative (Negative); Nitrite,Urine Negative (Negative); Specific Gravity,Urine 1.013 (1.001-1.030); Urobilinogen,Urine 0.2 E.U./DL
[2024-01-15 04:04] LABS: Bacteria,Urine None Seen (None Seen)
== END | disposition home or self-care (01) ==
LOC: LABWHC1 15:30
PROVIDERS: ATTEND Psychiatry & Neurology Neurology
DX: M41.9 Scoliosis, unspecified (principal); M70.62 Trochanteric bursitis, left hip; M81.0 Age-related osteoporosis without current pathological fracture; M19.011 Primary osteoarthritis, right shoulder; M54.2 Cervicalgia; R80.9 Proteinuria, unspecified; W18.30XA Fall on same level, unspecified, initial encounter
CPT/HCPCS: 36415; 72040; 72070; 72202; 73502; 80048; 81001; 82043; 82570; 83735; 84156

== ENCOUNTER → 2024-03-30 | Outpatient (CLI) | payer MEDICARE ==
[2024-03-30 16:05] LABS: Chol/HDL Ratio 2.94 Ratio; LDL Cholesterol,Calculated 84.1 mg/dL (0.0-131.0)
[2024-03-30 16:06] LABS: Glucose 110 mg/dL (70-110)
== END | disposition home or self-care (01) ==
LOC: LABWHC1 09:07
PROVIDERS: ATTEND Internal Medicine
DX: E11.65 Type 2 diabetes mellitus with hyperglycemia (principal); N39.0 Urinary tract infection, site not specified
CPT/HCPCS: 36415; 80061; 82947; 83036

== ENCOUNTER → 2024-04-08 | Outpatient (CLI) | payer MEDICARE ==
[2024-04-08 08:39] LABS: African American GFR (CKD) >90 (>60 ml/min/1.73 sqM); Blood Urea Nitrogen 14 mg/dL (7-17); Non-African American GFR(CKD) >90 (>60 ml/min/1.73 sqM)
--- NOTE | 2024-04-08 10:31 | CT ---
EXAMINATION TYPE: CT angio head neck CT DLP: 1488.8 mGycm, Automated exposure control for dose reduction was used. DATE OF EXAM: 04/08/2024 10:18 AM COMPARISON: CT brain 10/31/2019. CLINICAL INDICATION:Female, 74 years old with history of R25.1 TREMOR R51.9 HEADACHE H53.2 DIPLOPIA; PHH, Tremors, headache, diplopia, hx of stroke. TECHNIQUE: Axially acquired helical CT angiogram of the head and neck was obtained with contrast util izing 65 cc of Isovue-370 administered intravenously. Noncontrast imaging of the brain was performed before intravenous administration of contrast. Axial images are supplemented with 3D reconstructions which were post-processed at an independent workstation. NASCET criteria used. FINDINGS: CTA HEAD: No evidence of acute intracranial hemorrhage, mass effect, or midline shift. Cerebral atrophy with re demonstration of periventricular hypodensity likely related to chronic small vessel ischemic disease. The ventricles, sulci, and cisterns are unremarkable. Postsurgical changes of the bilateral maxillar y sinuses medial torres and ethmoid sinuses. Bilateral aphakia. The visualized portions of the internal carotid arteries, middle cerebral arteries, anterior cerebral arteries, and posterior cerebral arteries are patent. The basilar and vertebral arteries are patent. CTA NECK: Right Carotid System: The common carotid artery and external carotid artery are patent. Postsurgical changes with a vascula r stent involving the common carotid artery extending into the proximal internal carotid artery. The stent is patent. There is mild narrowing within the stent measuring up to 30% stenosis. The remaining portions of the internal carotid artery demonstrate normal size without significant narrowing. Left Carotid System: The common carotid artery and external carotid artery are patent. Mild calcified plaque at the caroti d bifurcation. The carotid bifurcation demonstrates no evidence of hemodynamically significant stenos is. The remaining portions of the internal carotid artery demonstrate normal size without significant narrowing. Vertebral arteries are patent without evidence hemodynamically significant stenosis. There is a three-vessel aortic arch. The origins of the great vessels are patent. No evidence of hemo dynamically significant stenosis. IMPRESSION: 1. No evidence of dissection of the cervical internal carotid arteries or vertebral arteries. Postsur gical changes with vascular stent involving the right common carotid artery extending into the proxim al right internal carotid artery. Approximately 30% stenosis within the stent at the level of the bif urcation. No significant stenosis of the left carotid system. 2. No evidence of high-grade stenosis or intracranial aneurysm. [facility], , 04/08/2024 10:29 AM
--- NOTE | 2024-04-08 15:05 | MR ---
EXAMINATION TYPE: MR brain wo con DATE OF EXAM: 04/08/2024 9:06 AM COMPARISON: 10/31/2019. CLINICAL INDICATION: Female, 74 years old with history of R25.1 TREMOR R51.9 HEADACHE H53.2 DIPLOPIA; PHH, Dizziness, rt side weakness TECHNIQUE: Multi planar, multi sequence imaging was performed through the brain including: T1, T2, In version recovery, Diffusion weighted imaging, and gradient echo imaging. No gadolinium was given. FINDINGS: Mild cerebral atrophy with proportional dilation of ventricular system. Scattered foci of high T2 s ignal intensity are seen within the periventricular white matter. Midline structures show no abnormal ity. Diffusion-weighted imaging shows no evidence of restricted diffusion. The susceptibility weighte d images do not reveal any evidence for micro-hemorrhage. The bone marrow signal is within normal limits. Paranasal sinuses and mastoid air cells: No significant paranasal sinus disease. Visualized orbits: Bilateral aphakia IMPRESSION: 1. No evidence of intracranial mass or acute/subacute infarct. 2. Nonspecific white matter changes, likely secondary to small vessel ischemic disease. [facility], , 04/08/2024 3:03 PM
== END | disposition home or self-care (01) ==
LOC: RADMRIMAIN 07:45
PROVIDERS: ATTEND Psychiatry & Neurology Neurology
DX: R25.1 Tremor, unspecified (principal); H53.2 Diplopia; Z86.73 Personal history of transient ischemic attack (TIA), and cerebral infarction without residual deficits; G93.41 Metabolic encephalopathy; Z95.1 Presence of aortocoronary bypass graft; R90.82 White matter disease, unspecified
CPT/HCPCS: 82565; 84520; 70496; 70498; 36415; 70551; Q9967

== ENCOUNTER → 2024-06-23 | Outpatient (CLI) | payer MEDICARE ==
[2024-06-23 15:05] LABS: Basophils # (A) 0.04 X 10*3/uL (0.00-0.10); Basophils % (A) 0.4 %; Eosinophils # (A) 0.11 X 10*3/uL (0.04-0.35); Eosinophils % (A) 1.2 %; HCT 38.9 % (37.2-46.3); HGB 12.2 g/dL (12.0-15.0); Lymphocytes # (A) 3.57 X 10*3/uL (0.90-5.00); Lymphocytes % (A) 37.9 %; MCH 28.4 pg (27.0-32.0); MCHC 31.4 g/dL (32.0-37.0); MCV 90.5 FL (80.0-97.0); Mean Platelet Volume 11.3 FL (9.5-12.2); Monocytes # (A) 0.87 X 10*3/uL (0.20-1.00); Monocytes % (A) 9.2 %; NRBC Per 100 WBC 0 X 10*3/uL (0.00-0.01); Neutrophils # (A) 4.81 X 10*3/uL (1.80-7.70); Platelet Count 237 X 10*3/uL (140-440); RDW 14.7 % (11.5-14.5); WBC 9.43 X 10*3/uL (4.50-10.00)
[2024-06-23 16:21] LABS: Erythrocyte Sedimentation Rate 26 mm/Hr (0-30)
[2024-06-23 19:53] LABS: ALT 19 U/L (8-44); AST 19 U/L (13-35); Albumin 4.2 g/dL (3.8-4.9); Albumin/Globulin Ratio 1.83 Ratio (1.60-3.17); Alkaline Phosphatase 74 U/L (41-126); BUN/Creat Ratio 23.83 Ratio (12.00-20.00); Blood Urea Nitrogen 14.3 mg/dL (9.0-27.0); C Reactive Protein <0.30 mg/dL (0.00-0.80); Carbon Dioxide 25.1 mmol/L (21.6-31.8); Chloride 113 mmol/L (96-109); Globulin 2.3 g/dL (1.6-3.3); Glucose 88 mg/dL (70-110); Potassium 4.6 mmol/L (3.5-5.5); Sodium 150 mmol/L (135-145); Total Bilirubin 0.4 mg/dL (0.3-1.2); Total Protein 6.5 g/dL (6.2-8.2)
[2024-06-23 21:11] LABS: Gliadin AB IgA, Deaminated Negative (Negative); Gliadin AB IgA, Unit <0.5 U/mL; Gliadin AB IgG, Deaminated Negative (Negative); Gliadin AB IgG, Unit <0.4 U/mL
[2024-06-23 23:32] LABS: Clam IgE <0.10 kU/L; Codfish IgE <0.10 kU/L; Egg White IgE <0.10 kU/L; Peanut IgE <0.10 kU/L; Scallop IgE <0.10 kU/L; Shrimp IgE <0.10 kU/L; Soybean IgE <0.10 kU/L; Walnut IgE (Food) <0.10 kU/L
== END | disposition home or self-care (01) ==
LOC: LABWHC1 11:43
PROVIDERS: ATTEND Internal Medicine Gastroenterology
DX: K52.9 Noninfective gastroenteritis and colitis, unspecified (principal)
CPT/HCPCS: 36415; 80053; 82785; 83516; 85025; 85652; 86003; 86140

== ENCOUNTER 2024-07-01 11:40 | Day surgery (SDC) | payer MEDICARE ==
[2024-06-30 12:28] VITALS: BMI 35.7
[2024-07-01 12:24] VITALS: TEMP 97.2
[2024-07-01] MEDS: IV FLUID CONTINUATION 1,000 ML IV ONE (12:25)
[2024-07-01 12:34] LABS: Glucose,Whole Blood 113 mg/dL (70-110)
[2024-07-01] MEDS: LACTATED RINGERS 1,000 ML IV SCH (12:38)
[2024-07-01] MEDS ORDERED: PROPOFOL 10 MG/ML 20 ML VIAL IV ONE (12:52)
--- NOTE | 2024-07-01 13:16 | P.PCN ---
Date of Procedure: 07/01/24 Procedure(s) Performed: BRIEF HISTORY: Patient is a 74-year-old pleasant white female scheduled for an elective colonoscopy as a part of evaluation of chronic diarrhea for several years duration. She usually has 3-4 loose watery bowel movements daily. No blood or mucus in the stool. PROCEDURE PERFORMED: Colonoscopy with random biopsies/snare polypectomy.. PREOPERATIVE DIAGNOSIS: Chronic diarrhea. IV sedation per Anesthesia. PROCEDURE: After informed consent was obtained, the patient, was brought into the endoscopy unit. IV sedation was administered by Anesthesia under continuous monitoring. Digital rectal examination was normal. Initially the Olympus CF-160 flexible video colonoscope was then inserted in the rectum, gradually advanced into the cecum without any difficulty. Careful examination was performed as the scope was gradually being withdrawn. Ileocecal valve and the appendiceal orifice were visualized and appeared normal. Prep was excellent. Mucosa of the cecum, appeared normal. In the ascending colon there were 2 polyps measuring 6 mm and 8 mm in size both of which were removed by cold snare polypectomy. Rest of the ascending colon, transverse colon, descending colon, sigmoid colon, and rectum appeared normal. Biopsies were done from the ascending and descending colon to microscopic/collagenous colitis. Retroflexion was performed in the rectum and no lesions were seen. The patient tolerated the procedure well. IMPRESSION: 6 mm and 8 mm ascending colon polyp status post cold snare polypectomy Rest of the colon appeared normal RECOMMENDATIONS: Findings of this examination were discussed with the patient as well as her family.. Was advised to follow-up with the biopsy results. The biopsy reveals adenoma she can have repeat colonoscopy in 3 years. Follow-up in the office in 2 weeks.
[2024-07-01 13:38] VITALS: BP 145/81; PULSE 65; RESP 16
== END 2024-07-01 13:55 | disposition home or self-care (01) ==
LOC: ORWHC2ENDO 11:40
PROVIDERS: ATTEND Internal Medicine Gastroenterology
DX: D12.2 Benign neoplasm of ascending colon (principal); D12.5 Benign neoplasm of sigmoid colon; K52.9 Noninfective gastroenteritis and colitis, unspecified; I10 Essential (primary) hypertension; E78.5 Hyperlipidemia, unspecified; G47.33 Obstructive sleep apnea (adult) (pediatric); K21.9 Gastro-esophageal reflux disease without esophagitis; Z86.73 Personal history of transient ischemic attack (TIA), and cerebral infarction without residual deficits; Z79.82 Long term (current) use of aspirin; Z90.49 Acquired absence of other specified parts of digestive tract; Z90.710 Acquired absence of both cervix and uterus; Z79.899 Other long term (current) drug therapy
CPT/HCPCS: 88305; 45380; 45385; J2704

== ENCOUNTER → 2024-10-14 | Outpatient (CLI) | payer MEDICARE ==
[2024-10-14 15:58] LABS: ALT 18 U/L (8-44); AST 20 U/L (13-35); Chol/HDL Ratio 3.29 Ratio; LDL Cholesterol,Calculated 89.6 mg/dL (0.0-131.0)
== END | disposition home or self-care (01) ==
LOC: LABWHC1 08:48
PROVIDERS: ATTEND Nurse Practitioner Acute Care
DX: E78.2 Mixed hyperlipidemia (principal)
CPT/HCPCS: 36415; 80061; 84450; 84460